=== PATIENT | male | born 1985 | race African-American/Black ===

== ENCOUNTER → 2020-01-14 08:28 | Outpatient (BNVA) | payer OTHER, SELFPAY | PROVIDERS: PCP Nurse Practitioner Family; Referring Provider Nurse Practitioner Family; Visit Provider Psychiatry & Neurology Neurology | DX: Z76.89 Persons encountering health services in other specified circumstances (principal) ==

== ENCOUNTER 2020-06-17 08:22 | Outpatient (REF) | payer OTHER, SELFPAY ==
[2020-06-17 12:24] LABS: TSH reflex Free T4 2.03 uIU/mL (0.32-4.0)
[2020-06-17 12:30] LABS: Alanine Aminotransferase 57 U/L (0-40); Albumin Level 4.5 g/dL (3.5-5.0); Alkaline Phosphatase 78 U/L (39-117); Anion Gap 17 (12-20); Aspartate Amino Transferase 32 U/L (5-37); Bilirubin Total 0.4 mg/dL (0.0-1.0); Blood Urea Nitrogen 12 mg/dL (9-16); Calcium 9.5 mg/dL (8.4-10.2); Carbon Dioxide 24 mmol/L (22-29); Chloride 101 mmol/L (96-108); Cholesterol 208 mg/dL; Estimated Glomerular Filt Rate > 60; Glucose Fasting 200 mg/dL (60-99); HDL Cholesterol 31 mg/dL; LDL Cholesterol Calculated 98 mg/dl; Potassium 4.8 mmol/L (3.3-5.1); Sodium 137 mmol/L (135-145); Total Protein 7.3 g/dL (6.5-8.0); Triglycerides 398 mg/dL
[2020-06-17 12:32] LABS: Creatinine Urine 67.65 mg/dL; Microalbum/Creatinine Ratio Ur 10.3 ug/mg cr
[2020-06-17 12:36] LABS: Estimated Average Glucose 200 mg/dL; Hemoglobin A1c % 8.6 %
== END 2020-06-17 08:23 | disposition home or self-care (01) ==
LOC: HO.HMGCLDS 08:22
PROVIDERS: PCP Nurse Practitioner Family; Visit Provider Nurse Practitioner Family
DX: E11.9 Type 2 diabetes mellitus without complications (principal)
CPT/HCPCS: 36415; 80053; 80061; 82043; 83036; 84443

== ENCOUNTER 2023-02-11 07:49 | Outpatient (REF) | payer OTHER, SELFPAY ==
[2023-02-11 11:14] LABS: MANUAL DIFF FLAG NO
[2023-02-11 11:19] LABS: Basophils Absolute Auto 0.1 X10*3/uL (0.0-0.2); Basophils Percent Auto 0.7 % (0-2); Eosinophils Absolute Auto 0.4 X10*3/uL (0.0-0.4); Eosinophils Percent Auto 3.5 % (0-4); Hematocrit 46.8 % (42.0-52.0); Imm Gran Abs Auto 0.06 X10*3/uL (0.00-0.03); Imm Gran Pct Auto 0.5 % (0.0-0.4); Lymphocytes Absolute Auto 4.4 X10*3/uL (1.2-4.9); Lymphocytes Percent Auto 38.8 % (20-40); Mean Corpuscular HGB Conc 34.2 g/dl (31.0-36.0); Mean Corpuscular Hemoglobin 30.4 pg (27.0-33.0); Mean Platelet Volume 9.8 fL (9.4-12.4); Monocytes Absolute Auto 0.8 X10*3/uL (0.1-1.2); Monocytes Percent Auto 7.3 % (2-11); Neutrophils Absolute Auto 5.6 x10*3/uL (2.0-8.3); Neutrophils Percent Auto 49.2 % (45-73); Platelet Count 324 X10*3/uL (160-400); Red Blood Count 5.26 X10*6/uL (4.60-5.80); Red Cell Distribution Width 11.8 % (11.0-16.0); White Blood Count 11.4 X10*3/uL (4.8-10.8)
[2023-02-11 11:22] LABS: Appearance Urine Cloudy; Color Urine Yellow; Glucose Urine UA 500 mg/dL (Negative); Leukocyte Esterase Urine Small (1+) (Negative); Nitrite Urine Negative (Negative); PH 5.5 (5.0-9.0); Specific Gravity - Urine 1.025 (1.005-1.025); UMIC TRIGGER UACC YES; Urine Blood Negative (Negative); Urine Ketones Negative (Negative); Urine Protein Negative (Neg-Trace)
[2023-02-11 11:25] LABS: Bacteria Urine None Seen (None Seen); Hyaline Casts Urine 0-2 /LPF (0-2); RBC Urine 0-2 /HPF (0-2); Squamous Epithelial Cell Urine 0-2 /HPF (0-2); UACC Culture Trigger YES
[2023-02-11 11:37] LABS: Alanine Aminotransferase 66 U/L (0-40); Albumin Level 4.4 g/dL (3.5-5.0); Alkaline Phosphatase 79 U/L (39-117); Anion Gap 12 (12-20); Aspartate Amino Transferase 26 U/L (5-37); Bilirubin Total 0.3 mg/dL (0.0-1.0); Blood Urea Nitrogen 10 mg/dL (9-16); Calcium 9.6 mg/dL (8.4-10.2); Carbon Dioxide 26 mmol/L (22-29); Chloride 101 mmol/L (96-108); Cholesterol 183 mg/dL (<200); Estimated Glomerular Filt Rate > 60; Glucose Fasting 277 mg/dL (60-99); HDL Cholesterol 32 mg/dL (>40); LDL Cholesterol Calculated 100 mg/dL (<100); Potassium 4.3 mmol/L (3.3-5.1); Sodium 135 mmol/L (135-145); Total Protein 7.6 g/dL (6.5-8.0); Triglycerides 255 mg/dL (<150)
[2023-02-11 11:38] LABS: Microalbum/Creatinine Ratio Ur 9.6 ug/mg cr (<30)
[2023-02-11 11:56] LABS: TSH reflex Free T4 1.54 uIU/mL (0.32-4.0)
== END 2023-02-11 07:50 | disposition home or self-care (01) ==
LOC: HO.HMGCLDS 07:49
PROVIDERS: PCP Nurse Practitioner Family; Visit Provider Nurse Practitioner Family
DX: E11.9 Type 2 diabetes mellitus without complications (principal); R82.90 Unspecified abnormal findings in urine
CPT/HCPCS: 36415; 80053; 80061; 81001; 82043; 82570; 84443; 85025; 87086

== ENCOUNTER 2023-02-14 08:10 | Outpatient (AMB) | payer OTHER, SELFPAY ==
--- NOTE | 2023-02-14 08:14 | MHC.PC.OV ---
Vital Signs 02/14/23 08:19 Height 5 ft 11.5 in Weight 270 lb BMI 37.1 BP 112/70 Blood Pressure Location Rt brachial Position Sitting Pulse 91 Pulse Source Pulse Oximeter Pulse Oximetry (%) 97 Oxygen Delivery Method Room Air Intake Visit Reasons: 3m diabetes follow up Allergies penicillin G Allergy (Unknown, Verified 02/14/23 08:32) unknown Penicillins [PENICILLINS] Allergy (Unknown, Verified 02/14/23 08:32) UNKNOWN Medication List - Last Reconciled 02/14/23 by HERON Banks Alcohol Prep Pads (alcohol swabs) 1 pad topical .TID NS blood sugar diagnostic As directed blood-glucose meter As directed lancets As directed lancets (OneTouch Delica Plus Lancet) TID testing lisinopril 20 mg PO DAILY metformin ER 500 mg PO BID 90 days OneTouch Ultra Test (blood sugar diagnostic) TID testing NS OneTouch Ultra2 Meter (blood-glucose meter) TID testing NS sertraline 100 mg PO DAILY Tobacco use date assessed: 08/25/22 Dental Screening Dental Screen Date: 02/14/23 Did you have a dental visit in the last 12 months?: No Did you have a dental problem in the last 6 months where you did not have access to dental care?: No Was dental information given to patient?: Patient has dentist HPI 3m diabetes follow up HPI Details Pt is a diabetic, on an GELY. A1C in office today is 10.2. Microalbumin is up to date. Denies polyuria, polydipsia, and neuropathy. Pt denies any signs and symptoms of hypoglycemia and does know how to correct it. He would not like to start insulin at this time. Pt has tried jardiance in the past which he tolerated well. Will restart this. Pt is uncircumcised, educated on the importance of keeping the area clean to avoid genital yeast infection. Will also start ozempic 0.25mg. Eye exam is up to date according to pt. Pt reports that statins caused alopecia. Will restart zetia. Refuses vaccines today. Hx of elevated liver enzymes. Will order US and hepatitis screen. [facility] Surgical History No pertinent past surgical history Family History Father HTN (hypertension) Mother No problems noted. Maternal Grandmother Stroke Paternal Grandfather CVD (cardiovascular disease) Brother No problems noted. Brother No problems noted. Sister No problems noted. Sister No problems noted. Sister No problems noted. Social History Housing: House Patient Tobacco Use Status: Never used Tobacco e-Cigarette/Vaping Use: Never Used service: No Current occupational status: employed Cognitive needs: No Hearing needs: No Vision needs: Yes Review of Systems Const Reports as per HPI Physical exam (Primary Care) Vital Signs: Last Vital Signs Pulse 91 02/14/23 08:19 BP 112/70 02/14/23 08:19 Pulse Ox 97 02/14/23 08:19 Oxygen Delivery Method Room Air 02/14/23 08:19 BMI result Body Mass Index 37.1 Tobacco/Smoking Status: Tobacco use Status Tobacco use date assessed 08/25/22 02/14/23 08:16 Patient Tobacco Use Status Never used Tobacco 02/14/23 08:16 e-Cigarette/Vaping Use Never Used 02/14/23 08:16 Const General: cooperative Nutritional Appearance: obese Orientation/consciousness: patient oriented x3 Resp Effort & Inspection: normal respiratory effort Auscultation: clear to auscultation bilaterally Cardio Rate: regular rate Rhythm: regular rhythm Heart sounds: S1 normal heart sound present and S2 normal heart sound present Neuro General: patient oriented x3 Extrem Other: bilat feet: + sensation with use of monofilament, feet intact Psych Appearance: grossly normal Mental Status: mental status grossly normal Speech and movement: Normal speech and movement present Affect: normal affect Attitude: cooperative Thought process: Normal thought process present Thought content: Normal thought content present Insight: Good insight present (Psych) Judgement: Good judgement present (Psych) Results AMB Hemoglobin A1c AMB Hemoglobin A1c 10.2 % Last Edit by MAURO Elaine on 02/14/23 08:44 Assessment and Plan Assessment & Plan (1) Elevated liver enzymes: Code(s): R74.8 - Abnormal levels of other serum enzymes Plan: Hepatitis screen and US ordered (2) Leukocytosis: Code(s): D72.829 - Elevated white blood cell count, unspecified Plan: CBC ordered (3) Diabetes: Code(s): E11.9 - Type 2 diabetes mellitus without complications Plan: Labs ordered Plan The patient agreed to the use of a medical nurse for this encounter. Scribed for Gabriele Aquino BODY CORPORATE MANAGER- by Shyla Gunn medical nurse, on 02/14/2023 at 08:35 EST. Orders: Orders US abdomen complete Today R74.8 - Abnormal levels of other serum enzymes AMB Hemoglobin A1c Today Z13.9 - Encounter for screening, unspecified Complete Blood Count Auto Diff Today D72.829 - Elevated white blood cell count, unspecified Hepatitis A,B,C Profile Today E11.9 - Type 2 diabetes mellitus without complications, R74.8 - Abnormal levels of other serum enzymes Medications: New semaglutide (Ozempic) for 4 weeks 0.25 mg (0.368 mL) subcut QWEEK 30 days 1.84 mL 2RF empagliflozin (Jardiance) 10 mg PO DAILY 90 days 90 tabs 1RF Changed From ezetimibe (Zetia) 10 mg PO DAILY 30 days 30 tabs 3RF To ezetimibe (Zetia) 10 mg PO DAILY 90 days 90 tabs 2RF Coding Level of Care Code Est Pt Level 3 (88160) Diagnoses Elevated liver enzymes R74.8 Leukocytosis D72.829 Diabetes E11.9
[2023-02-14 08:19] VITALS: BP 112/70; PULSE 91; O2SAT 97; BMI 37.1
== END 2023-02-14 09:05 | disposition home or self-care (01) ==
PROVIDERS: PCP Nurse Practitioner Family; Visit Provider Nurse Practitioner Family
DX: R74.8 Abnormal levels of other serum enzymes (principal); D72.829 Elevated white blood cell count, unspecified; E11.9 Type 2 diabetes mellitus without complications
CPT/HCPCS: 83036; 99213

== ENCOUNTER 2023-02-14 09:08 | Outpatient (REF) | payer OTHER, SELFPAY ==
[2023-02-14 11:29] LABS: Basophils Absolute Auto 0.1 X10*3/uL (0.0-0.2); Basophils Percent Auto 0.7 % (0-2); Eosinophils Absolute Auto 0.5 X10*3/uL (0.0-0.4); Eosinophils Percent Auto 3.7 % (0-4); Hematocrit 49.5 % (42.0-52.0); Hemoglobin 16.9 g/dl (14.0-18.0); Imm Gran Abs Auto 0.09 X10*3/uL (0.00-0.03); Imm Gran Pct Auto 0.6 % (0.0-0.4); Lymphocytes Absolute Auto 5.3 X10*3/uL (1.2-4.9); Lymphocytes Percent Auto 37.8 % (20-40); MANUAL DIFF FLAG SCAN; Mean Corpuscular HGB Conc 34.1 g/dl (31.0-36.0); Mean Corpuscular Hemoglobin 30.3 pg (27.0-33.0); Mean Corpuscular Volume 88.9 fL (80.0-98.0); Mean Platelet Volume 9.7 fL (9.4-12.4); Neutrophils Absolute Auto 7.1 x10*3/uL (2.0-8.3); Neutrophils Percent Auto 50.2 % (45-73); Platelet Count 336 X10*3/uL (160-400); Red Blood Count 5.57 X10*6/uL (4.60-5.80); Red Cell Distribution Width 11.9 % (11.0-16.0); SCAN SMEAR FLAG 1; White Blood Count 14.1 X10*3/uL (4.8-10.8)
[2023-02-14 12:00] LABS: SLIDE REVIEW VERIFIED
[2023-02-14 12:25] LABS: HBS Num1 0.17 mIU/mL (0-7.99); HBc Num1 0.11 S/CO (0.00-0.79); HBsAGNum1 0.45 S/CO (0.00-0.99); Hepatitis A Antibody IgM 0.11 Index (0-0.79); Hepatitis B Core Antibody Nonreactive (Nonreactive); Hepatitis B Surface Antigen Negative (Negative); ~HepC Num1 0.07 S/CO (0.00-0.79); ~Hepatitis A Antibody IgM Nonreactive (Nonreactive); ~Hepatitis B Surface Antibody NONREACTIVE (Nonreactive); ~Hepatitis C Antibody Nonreactive (Nonreactive)
== END 2023-02-14 09:09 | disposition home or self-care (01) ==
LOC: HO.HMGCLDS 09:08
PROVIDERS: PCP Nurse Practitioner Family; Visit Provider Nurse Practitioner Family
DX: D72.829 Elevated white blood cell count, unspecified (principal); E11.9 Type 2 diabetes mellitus without complications; R74.8 Abnormal levels of other serum enzymes
CPT/HCPCS: 36415; 85025; 86704; 86706; 86709; 86803; 87340

== ENCOUNTER 2023-02-15 13:40 | Outpatient (REF) | payer OTHER, SELFPAY ==
[2023-02-15 16:21] LABS: Appearance Urine Clear; Color Urine Yellow; Glucose Urine UA >=1000 mg/dL (Negative); Leukocyte Esterase Urine Negative (Negative); Nitrite Urine Negative (Negative); Specific Gravity - Urine >= 1.030 (1.005-1.025); UMIC TRIGGER UACC YES; Urine Blood Negative (Negative); Urine Ketones Negative (Negative); Urine Protein Negative (Neg-Trace)
[2023-02-15 16:24] LABS: Bacteria Urine None Seen (None Seen); Hyaline Casts Urine 0-2 /LPF (0-2); RBC Urine 0-2 /HPF (0-2); Squamous Epithelial Cell Urine 0-2 /HPF (0-2); WBC Urine 0-5 /HPF (0-5)
== END 2023-02-15 13:41 | disposition home or self-care (01) ==
LOC: HO.HMGCX 13:40
PROVIDERS: PCP Nurse Practitioner Family; Visit Provider Nurse Practitioner Family
DX: D72.829 Elevated white blood cell count, unspecified (principal); R82.90 Unspecified abnormal findings in urine
CPT/HCPCS: 71046; 81001; 87086

== ENCOUNTER 2023-02-28 09:03 | Outpatient (REF) | payer OTHER, SELFPAY ==
--- NOTE | ~2023-02-28 | US_ITS ---
EXAMINATION: US ABDOMEN COMPLETE CLINICAL INFORMATION: Abnormal levels of other serum enzymes. COMPARISON: Ultrasound abdomen 10/31/2019. TECHNIQUE: Real-time imaging of the abdominal viscera. Limited visualization due to bowel gas and body habitus. FINDINGS: PANCREAS: Limited visualization of pancreatic tail and head. Imaged portion of pancreatic body is unremarkable. ABDOMINAL AORTA: Nonaneurysmal. INFERIOR VENA CAVA: Visualized portions are normal. LIVER: Increased hepatic parenchymal heterogeneity and echogenicity could be associated with hepatocellular disease/hepatic steatosis and severely limits visualization. Correlation with liver function tests and clinical exam recommended to determine further management. Hypoechoic areas within the liver adjacent to the gallbladder are characteristic of areas of focal sparing. GALLBLADDER: No gallstones. Borderline gallbladder wall thickening of 0.34 cm. COMMON BILE DUCT: Normal in caliber measuring 0.2 cm in diameter. RIGHT KIDNEY: No hydronephrosis. No renal calculi. Limited visualization. The kidney measures 13.8 cm in maximum dimension. LEFT KIDNEY: No hydronephrosis. No renal calculi. Limited visualization. The kidney measures 11.6 cm in maximum dimension. SPLEEN: Borderline enlarged spleen. The spleen measures 12.4 cm in maximum dimension. FREE FLUID: None. US/US abdomen complete IMPRESSION: 1. Increased hepatic parenchymal heterogeneity and echogenicity could be associated with hepatocellular disease/hepatic steatosis and severely limits visualization. Hypoechoic areas within the liver adjacent to the gallbladder are characteristic of areas of focal sparing. Correlation with liver function tests and clinical exam recommended to determine further management. 2. Borderline splenomegaly.
[2023-02-28 11:10] LABS: MANUAL DIFF FLAG NO
[2023-02-28 11:13] LABS: Appearance Urine Clear; Color Urine Yellow; Glucose Urine UA >=1000 mg/dL (Negative); Leukocyte Esterase Urine Trace (Negative); Nitrite Urine Negative (Negative); PH 5.5 (5.0-9.0); Specific Gravity - Urine 1.025 (1.005-1.025); UMIC TRIGGER UACC YES; Urine Blood Negative (Negative); Urine Ketones 15 mg/dL (Negative); Urine Protein Negative (Neg-Trace)
[2023-02-28 11:17] LABS: Bacteria Urine None Seen (None Seen); Basophils Absolute Auto 0.1 X10*3/uL (0.0-0.2); Basophils Percent Auto 0.5 % (0-2); Eosinophils Absolute Auto 0.3 X10*3/uL (0.0-0.4); Eosinophils Percent Auto 3.2 % (0-4); Hematocrit 48.5 % (42.0-52.0); Hemoglobin 16.5 g/dl (14.0-18.0); Hyaline Casts Urine 0-2 /LPF (0-2); Imm Gran Abs Auto 0.08 X10*3/uL (0.00-0.03); Imm Gran Pct Auto 0.8 % (0.0-0.4); Lymphocytes Percent Auto 29.3 % (20-40); Mean Corpuscular Hemoglobin 29.7 pg (27.0-33.0); Mean Corpuscular Volume 87.2 fL (80.0-98.0); Mean Platelet Volume 9.4 fL (9.4-12.4); Monocytes Absolute Auto 0.9 X10*3/uL (0.1-1.2); Monocytes Percent Auto 8.9 % (2-11); Neutrophils Absolute Auto 5.8 x10*3/uL (2.0-8.3); Neutrophils Percent Auto 57.3 % (45-73); Platelet Count 294 X10*3/uL (160-400); RBC Urine 0-2 /HPF (0-2); Red Blood Count 5.56 X10*6/uL (4.60-5.80); Red Cell Distribution Width 12.6 % (11.0-16.0); Squamous Epithelial Cell Urine 0-2 /HPF (0-2); WBC Urine 0-5 /HPF (0-5); White Blood Count 10.2 X10*3/uL (4.8-10.8)
[2023-02-28 12:11] LABS: Alanine Aminotransferase 74 U/L (0-40); Albumin Level 4.4 g/dL (3.5-5.0); Alkaline Phosphatase 53 U/L (39-117); Anion Gap 13 (12-20); Aspartate Amino Transferase 33 U/L (5-37); Bilirubin Total 0.4 mg/dL (0.0-1.0); Blood Urea Nitrogen 10 mg/dL (9-16); Calcium 9.4 mg/dL (8.4-10.2); Carbon Dioxide 25 mmol/L (22-29); Chloride 103 mmol/L (96-108); Estimated Glomerular Filt Rate > 60; Glucose Random 123 mg/dL (60-115); Potassium 4.3 mmol/L (3.3-5.1); Sodium 137 mmol/L (135-145); Total Protein 7.5 g/dL (6.5-8.0)
== END 2023-02-28 09:04 | disposition home or self-care (01) ==
LOC: HO.HMGCX 09:03
PROVIDERS: PCP Nurse Practitioner Family; Visit Provider Nurse Practitioner Family
DX: D72.829 Elevated white blood cell count, unspecified (principal); R74.8 Abnormal levels of other serum enzymes
CPT/HCPCS: 36415; 76700; 80053; 81001; 85025

== ENCOUNTER 2023-05-17 09:43 | Outpatient (AMB) | payer OTHER, SELFPAY ==
[2023-05-17 09:45] VITALS: BP 120/74; PULSE 90; O2SAT 97; BMI 34.4
--- NOTE | 2023-05-17 09:45 | MHC.PC.OV ---
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 Accompanied by: Self / Same As Patient Allergies penicillin G Allergy (Unknown, Verified 05/17/23 12:17) unknown Penicillins [PENICILLINS] Allergy (Unknown, Verified 05/17/23 12:17) UNKNOWN Medication List - Last Reconciled 05/17/23 by CRISPIN Banks Alcohol Prep Pads (alcohol swabs) 1 pad topical .TID NS blood sugar diagnostic As directed blood-glucose meter As directed empagliflozin (Jardiance) 10 mg PO DAILY 90 days ezetimibe (Zetia) 10 mg PO DAILY 90 days lancets As directed lancets (OneTouch Delica Plus Lancet) TID testing lisinopril 20 mg PO DAILY metformin ER 500 mg PO BID 90 days OneTouch Ultra Test (blood sugar diagnostic) TID testing NS OneTouch Ultra2 Meter (blood-glucose meter) TID testing NS semaglutide (Ozempic) 0.25 mg (0.368 mL) subcut QWEEK 30 days sertraline 100 mg PO DAILY Tobacco use date assessed: 05/17/23 Dental Screening Dental Screen Date: 05/17/23 Did you have a dental visit in the last 12 months?: Yes Did you have a dental problem in the last 6 months where you did not have access to dental care?: No Was dental information given to patient?: Patient has dentist HPI 3m diabetes follow up HPI Details Pt is a diabetic, on an GELY. A1C in office today is 6.1. Microalbumin is up to date. Denies polyuria, polydipsia, and neuropathy. Pt denies any signs and symptoms of hypoglycemia and does know how to correct it. Pt reports that his intermittent neuropathy has ceased. Eye exam is scheduled. He describes feeling better, overall [facility] Medical History History of splenomegaly Surgical History No pertinent past surgical history Family History Father HTN (hypertension) Mother No problems noted. Maternal Grandmother Stroke Paternal Grandfather CVD (cardiovascular disease) Brother No problems noted. Brother No problems noted. Sister No problems noted. Sister No problems noted. Sister No problems noted. Social History Housing: House Patient Tobacco Use Status: Never used Tobacco e-Cigarette/Vaping Use: Never Used service: No Current occupational status: employed Cognitive needs: No Hearing needs: No Vision needs: Yes Questionnaire PHQ-9 Over the last 2 weeks, how often have you been bothered by any of the following problems? 1. Little interest or pleasure in doing things: not at all 2. Feeling down, depressed, or hopeless: not at all 3. Trouble falling or staying asleep, or sleeping too much: not at all 4. Feeling tired or having little energy: not at all 5. Poor appetite or overeating: not at all 6. Feeling bad about yourself - or that you are a failure or have let yourself or your family down: not at all 7. Trouble concentrating on things, such as reading the newspaper or watching television: not at all 8. Moving or speaking so slowly that other people could have noticed. Or the opposite - being so fidgety or restless that you have been moving around a lot more than usual: not at all 9. Thoughts that you would be better off or of hurting yourself in some way: not at all Total score: 0 Depression Screening Interpretation: Negative Depression Screening Done: Yes 18603 - PHQ-9 Billing: Yes Source: Developed by Drs. Bharat Ragsdale, Dayanara Garcia, Jeff Garcia and colleagues, with an educational selena from [employer]. Thrive Questionnaire Date Thrive assessed: 05/17/23 I am a: Patient What is your living situation today?: I have a steady place to live Within the past 12 months, did the food you bought not last and you didn't have the money to get more?: Never true Within the past 12 months, did you worry whether your food would run out before you got money to buy more?: Never true Do you have trouble paying for medicines?: No Do you have trouble getting transportation to medical appointments?: No Do you have trouble paying your heating and electricity bill?: No Do you have trouble taking care of your child, family member or friend?: No Do you have trouble with day-to-day activities such as bathing, preparing meals, shopping, managing finances, etc.?: No Are you currently unemployed and looking for a job?: No Are you interested in more education?: No Please select the resources that you would like help with: None Currently or been in a relationship where the following occur: no concerns reported THRIVE Score: 0 AUDIT C Alcohol Use Questionnaire (AUDIT-C) 1. How often do you have a drink containing alcohol?: Monthly or less 2. How many drinks containing alcohol do you have on a typical day when you are drinking?: 1 or 2 3. How often do you have six or more drinks on one occasion?: Never Total Score: 1 Score Reviewed/Action Taken: Yes ABNER-7 AMB Questionnaire ABNER-7 Date ABNER - 7 assessed: 05/17/23 Feeling nervous, anxious, or on edge: 0 = Not at all Not being able to stop or control worryin = Not at all Worrying too much about different things: 0 = Not at all Trouble relaxin = Not at all Being so restless that it is hard to sit still: 0 = Not at all Becoming easily annoyed or irritable: 0 = Not at all Feeling afraid as if something awful might happen: 0 = Not at all Total ABNER-7 score (0-4 normal; 5-9 mild; 10-14 moderate; 15-21 severe): 0 Source: Developed by Drs. Bharat Ragsdale, Dayanara Garcia, Jeff Garcia and colleagues, with an educational selena from [employer]. ABNER-7 Assessment Billing ABNER-7 Assessment Tool: ABNER-7 Assessment 38084 Review of Systems Const Reports as per HPI Physical exam (Primary Care) Vital Signs: Last Vital Signs Pulse 90 05/17/23 09:45 BP 120/74 05/17/23 09:45 Pulse Ox 97 05/17/23 09:45 Oxygen Delivery Method Room Air 05/17/23 09:45 BMI result Body Mass Index 34.4 Tobacco/Smoking Status: Tobacco use Status Tobacco use date assessed 05/17/23 05/17/23 09:48 Patient Tobacco Use Status Never used Tobacco 05/17/23 09:48 e-Cigarette/Vaping Use Never Used 05/17/23 09:48 PHQ-9: PHQ-9 Score PHQ-9: Total score 0 05/17/23 10:06 Depression Screening Interpretation: Negative Thrive Assessment: Date of Thrive Assessment Date Thrive assessed 05/17/23 05/17/23 09:48 Currently or been in a relationship where the following occur: no concerns reported Const General: cooperative Nutritional Appearance: obese Orientation/consciousness: patient oriented x3 Resp Effort & Inspection: normal respiratory effort Auscultation: clear to auscultation bilaterally Cardio Rate: regular rate Rhythm: regular rhythm Heart sounds: S1 normal heart sound present and S2 normal heart sound present Neuro General: patient oriented x3 Extrem Other: bilat feet: + sensation with use of monofilament, feet intact Right lower extremity: no edema Left lower extremity: no edema Psych Appearance: grossly normal Mental Status: mental status grossly normal Speech and movement: Normal speech and movement present Affect: normal affect Attitude: cooperative Thought process: Normal thought process present Thought content: Normal thought content present Insight: Good insight present (Psych) Judgement: Good judgement present (Psych) Results AMB Hemoglobin A1c AMB Hemoglobin A1c 6.1 % Last Edit by Eduardo Johnson CMA on 05/17/23 10:12 Results Reviewed Results Reviewed: Laboratory Last Values Hgb A1c (Clinic) 6.1 % (4.0-6.0) H 05/17/23 10:12 Assessment and Plan Assessment & Plan (1) Diabetes: Code(s): E11.9 - Type 2 diabetes mellitus without complications Plan: Labs ordered Plan The patient agreed to the use of a biomedical equipment specialist for this encounter. Scribed for CRISPIN Ocasio by Shyla Gunn biomedical equipment specialist, on 05/17/2023 at 10:00 EST. Orders: Orders TSH reflex Free T4 Today E11.9 - Type 2 diabetes mellitus without complications Lipid Panel Today E11.9 - Type 2 diabetes mellitus without complications AMB Hemoglobin A1c Today Z13.9 - Encounter for screening, unspecified Complete Blood Count Auto Diff Today E11.9 - Type 2 diabetes mellitus without complications Comprehensive [place]. Panel Fast Today E11.9 - Type 2 diabetes mellitus without complications UA CC w/rflx Micro + Cult Today E11.9 - Type 2 diabetes mellitus without complications Coding Level of Care Code Est Pt Level 3 (94321) Diagnoses Diabetes E11.9 Additional Codes ABNER-7 Assessment Billing - ABNER-7 Assessment Tool: ABNER-7 Assessment 17900 ([id number])
== END 2023-05-17 10:54 | disposition home or self-care (01) ==
PROVIDERS: PCP Nurse Practitioner Family; Visit Provider Nurse Practitioner Family
DX: Z13.9 Encounter for screening, unspecified (principal); E11.9 Type 2 diabetes mellitus without complications
CPT/HCPCS: 83036; 99213

== ENCOUNTER 2023-08-28 08:11 | Outpatient (REF) | payer OTHER, SELFPAY ==
[2023-08-28 10:16] LABS: Appearance Urine Clear; Color Urine Yellow; Glucose Urine UA >=1000 mg/dL (Negative); Leukocyte Esterase Urine Trace (Negative); MANUAL DIFF FLAG NO; Nitrite Urine Negative (Negative); PH 5.5 (5.0-9.0); Specific Gravity - Urine 1.025 (1.005-1.025); UMIC TRIGGER UACC YES; Urine Blood Negative (Negative); Urine Ketones Negative (Negative); Urine Protein Negative (Neg-Trace)
[2023-08-28 10:19] LABS: Bacteria Urine None Seen (None Seen); Hyaline Casts Urine 0-2 /LPF (0-2); RBC Urine 0-2 /HPF (0-2); Squamous Epithelial Cell Urine 0-2 /HPF (0-2); WBC Urine 0-5 /HPF (0-5)
[2023-08-28 10:26] LABS: Basophils Absolute Auto 0.1 X10*3/uL (0.0-0.2); Basophils Percent Auto 0.8 % (0-2); Eosinophils Absolute Auto 1.1 X10*3/uL (0.0-0.4); Imm Gran Abs Auto 0.04 X10*3/uL (0.00-0.03); Imm Gran Pct Auto 0.3 % (0.0-0.4); Lymphocytes Absolute Auto 4.4 X10*3/uL (1.2-4.9); Lymphocytes Percent Auto 35.9 % (20-40); Mean Corpuscular HGB Conc 33.3 g/dl (31.0-36.0); Mean Corpuscular Hemoglobin 30.5 pg (27.0-33.0); Mean Corpuscular Volume 91.4 fL (80.0-98.0); Mean Platelet Volume 9.7 fL (9.4-12.4); Monocytes Absolute Auto 0.9 X10*3/uL (0.1-1.2); Monocytes Percent Auto 7.6 % (2-11); Neutrophils Absolute Auto 5.6 x10*3/uL (2.0-8.3); Neutrophils Percent Auto 46.4 % (45-73); Platelet Count 299 X10*3/uL (160-400); Red Blood Count 5.25 X10*6/uL (4.60-5.80); Red Cell Distribution Width 12.8 % (11.0-16.0); White Blood Count 12.1 X10*3/uL (4.8-10.8)
[2023-08-28 10:47] LABS: Alanine Aminotransferase 54 U/L (0-40); Albumin Level 4.3 g/dL (3.5-5.0); Alkaline Phosphatase 72 U/L (39-117); Anion Gap 12 (12-20); Aspartate Amino Transferase 23 U/L (5-37); Bilirubin Total 0.3 mg/dL (0.0-1.0); Blood Urea Nitrogen 10 mg/dL (9-16); Calcium 9.2 mg/dL (8.4-10.2); Carbon Dioxide 26 mmol/L (22-29); Chloride 105 mmol/L (96-108); Cholesterol 117 mg/dL (<200); Estimated Glomerular Filt Rate > 60; Glucose Fasting 124 mg/dL (60-99); HDL Cholesterol 37 mg/dL (>40); LDL Cholesterol Calculated 66 mg/dL (<100); Potassium 4.7 mmol/L (3.3-5.1); Sodium 138 mmol/L (135-145); Total Protein 7.2 g/dL (6.5-8.0); Triglycerides 73 mg/dL (<150)
[2023-08-28 11:04] LABS: TSH reflex Free T4 1.72 uIU/mL (0.32-4.0)
== END 2023-08-28 08:12 | disposition home or self-care (01) ==
LOC: HO.HMGCLDS 08:11
PROVIDERS: PCP Nurse Practitioner Family; Visit Provider Nurse Practitioner Family
DX: E11.9 Type 2 diabetes mellitus without complications (principal)
CPT/HCPCS: 36415; 80053; 80061; 81001; 84443; 85025

== ENCOUNTER 2023-08-28 13:23 | Outpatient (AMB) | payer OTHER, SELFPAY ==
[2023-08-28 13:37] VITALS: BP 134/70; PULSE 96; O2SAT 95; BMI 35.4
--- NOTE | 2023-08-28 13:37 | A.OFFPC_ITS ---
Vital Signs 08/28/23 13:37 Height 5 ft 11.5 in Weight 257 lb 6 oz BMI 35.4 BP 134/70 Blood Pressure Location Lt brachial Position Sitting Pulse 96 Pulse Source Pulse Oximeter Pulse Oximetry (%) 95 Oxygen Delivery Method Room Air Intake Visit Reasons: PE Allergies penicillin G Allergy (Unknown, Verified 08/28/23 13:38) unknown Penicillins [PENICILLINS] Allergy (Unknown, Verified 08/28/23 13:38) UNKNOWN Tobacco use date assessed: 05/17/23 Dental Screening Dental Screen Date: 05/17/23 HPI PE HPI Details Pt is here for a PE. Labs were already performed. Leukocytosis noted on labs, will repeat CBC. Pt is a diabetic, on an GELY. A1C in office today is 6.1. Microalbumin is up to date. Denies polyuria, polydipsia, reports intermittent neuropathy. Pt denies any signs and symptoms of hypoglycemia and does know how to correct it. Pt was working on his diet and losing weight but his diet has been poorer lately. refuses pneumonia vaccination today. [facility] Medical History History of splenomegaly Surgical History No pertinent past surgical history Family History Father HTN (hypertension) Mother No problems noted. Maternal Grandmother Stroke Paternal Grandfather CVD (cardiovascular disease) Brother No problems noted. Brother No problems noted. Sister No problems noted. Sister No problems noted. Sister No problems noted. Social History Housing: House Patient Tobacco Use Status: Never used Tobacco e-Cigarette/Vaping Use: Never Used service: No Current occupational status: employed Cognitive needs: No Hearing needs: No Vision needs: Yes Questionnaire Thrive Questionnaire Date Thrive assessed: 05/17/23 ABNER-7 AMB Questionnaire ABNER-7 Date ABNER - 7 assessed: 05/17/23 Source: Developed by Drs. Bharat Ragsdale, Dayanara Garcia, Jeff Garcia and colleagues, with an educational selena from [employer]. Review of Systems Const Denies chills and Denies fever(s) Eyes Denies blurry vision ENT Denies vertigo, Denies dizziness and Denies sore throat Card Denies chest pain at rest, Denies chest pain with activity, Denies diaphoresis, Denies dyspnea and Denies dyspnea on exertion Resp Denies cough, Denies dyspnea, Denies dyspnea on exertion and Denies wheezing GI Denies abdominal pain, Denies melena, Denies hematochezia, Denies constipation, Denies diarrhea and Denies loose stools Denies hematuria Musc Denies numbness and Denies tingling Skin/Breast Denies lesions Neuro Denies vertigo, Denies dizziness, Denies numbness and Denies tingling Psych Denies anxiety, Denies depression, Denies homicidal ideation, Denies suicidal ideation and Denies other (substance abuse) Aller/Immun Denies wheezing Physical exam (Primary Care) Vital Signs: Last Vital Signs Pulse 96 08/28/23 13:37 BP 134/70 08/28/23 13:37 Pulse Ox 95 08/28/23 13:37 Oxygen Delivery Method Room Air 08/28/23 13:37 BMI result Body Mass Index 35.4 Tobacco/Smoking Status: Tobacco use Status Tobacco use date assessed 05/17/23 08/28/23 13:40 Patient Tobacco Use Status Never used Tobacco 08/28/23 13:40 e-Cigarette/Vaping Use Never Used 08/28/23 13:40 Thrive Assessment: Date of Thrive Assessment Date Thrive assessed 05/17/23 08/28/23 13:40 Const General: cooperative Nutritional Appearance: well nourished Orientation/consciousness: patient oriented x3 HENMT Head: Yes normal to inspection, Yes normocephalic and Yes atraumatic Ears: TM's normal bilaterally Eyes General: appearance normal, both eyes and all related structures Alignment and Position: alignment normal and position normal Neck Neck: Yes normal visual inspection and Yes no lymphadenopathy Thyroid: Thyroid normal Resp Effort & Inspection: normal respiratory effort Auscultation: clear to auscultation bilaterally Cardio Rate: regular rate Rhythm: regular rhythm Heart sounds: S1 normal heart sound present, S2 normal heart sound present and no murmurs GI Palpation (GI): Soft to palpation and nontender Auscultation: normal bowel sounds Male General Exam: Yes normal external exam Penis: normal penis Scrotum: scrotum normal, testes descended bilaterally and no inguinal hernias Testes: no testicular mass Skin Rashes: no rashes Neuro General: patient oriented x3, moves all extremities, no focal motor deficits and deep tendon reflexes 2+ bilaterally Romberg Test: Negative Extrem Other: bilat feet: + sensation with use of monofilament Psych Appearance: grossly normal Mental Status: mental status grossly normal Speech and movement: Normal speech and movement present Affect: normal affect Attitude: cooperative Thought process: Normal thought process present Thought content: Normal thought content present Insight: Good insight present (Psych) Judgement: Good judgement present (Psych) Assessment and Plan Assessment & Plan (1) Leukocytosis: Code(s): D72.829 - Elevated white blood cell count, unspecified Plan: Repeat CBC ordered Plan The patient agreed to the use of a electromedical equipment technician for this encounter. Scribed for CRISPIN Ocasio by Shyla Gunn electromedical equipment technician, on 08/28/2023 at 14:10 EST. Orders: Orders Complete Blood Count Auto Diff Today D72.829 - Elevated white blood cell count, unspecified Coding Level of Care Code Est Pt Prev Care 18-39y(40660) Diagnoses Leukocytosis D72.829
== END 2023-08-28 14:38 | disposition home or self-care (01) ==
PROVIDERS: PCP Nurse Practitioner Family; Visit Provider Nurse Practitioner Family
DX: Z00.00 Encounter for general adult medical examination without abnormal findings (principal); D72.829 Elevated white blood cell count, unspecified
CPT/HCPCS: 99395

== ENCOUNTER 2024-09-17 12:50 | Outpatient (AMB) | payer OTHER, SELFPAY ==
--- NOTE | 2024-09-17 12:53 | A.OFFPC_ITS ---
Vital Signs 09/17/24 12:54 Height 5 ft 11.5 in Weight 272 lb BMI 37.4 BP 124/82 Blood Pressure Location Lt brachial Position Sitting Respiration 16 Pulse 92 Pulse Oximetry (%) 94 Oxygen Delivery Method Room Air Intake Visit Reasons: PE Telesales Representative Required: No Accompanied by: Self / Same As Patient Allergies penicillin G Allergy (Unknown, Verified 09/17/24 13:22) unknown Penicillins (PENICILLINS) Allergy (Unknown, Verified 09/17/24 13:22) UNKNOWN Medication List - Last Reconciled 09/17/24 by Gabriele Aquino [facility] blood sugar diagnostic As directed blood-glucose meter As directed empagliflozin (Jardiance) 10 mg PO DAILY 90 days ezetimibe 10 mg PO DAILY lancets As directed lancets (OneTouch Delica Plus Lancet) TID testing lisinopril 20 mg PO DAILY metformin ER 500 mg PO BID 90 days OneTouch Ultra Test (blood sugar diagnostic) TID testing NS OneTouch Ultra2 Meter (blood-glucose meter) TID testing NS semaglutide (Ozempic) 0.25 mg (0.368 mL) subcut QWEEK sertraline 100 mg PO DAILY Tobacco use date assessed: 09/17/24 Dental Screening Dental Screen Date: 09/17/24 Did you have a dental visit in the last 12 months?: Yes Did you have a dental problem in the last 6 months where you did not have access to dental care?: No Was dental information given to patient?: Patient has dentist HPI PE HPI Details History of Present Illness The patient is a 39-year-old male presenting for diabetes management and lifestyle modification. He has a history of diabetes mellitus with a current hemoglobin A1c of 8.4%, indicating poor glycemic control. The patient reports dietary indiscretions, which he acknowledges as poor dietary choices. He has been off his GLP-1 agonist medication for over six months, which may have contributed to the suboptimal diabetes control. The patient recently purchased a new house and has a new daughter, which may have impacted his ability to maintain a healthy lifestyle. The patient is also noted to be obese, which is a contributing factor to his diabetes management challenges. He reports that his eye examination is up-to-date, which is an important aspect of diabetes management. Health Maintenance - Eye examination is current, which is c rucial for diabetes management Social History - Housing: Recently purchased a new hous e - Family: Has a new daughter - Nutrition: Reports frequent consumptio n of takeout food Review of Systems Physical Exam General: Cooperative, healthy appearing, comfortable, no acute distress and well developed, obese Orientation: Patient oriented x3 Limitations: No limitations Head: Normal to inspection Ears: Hearing grossly normal bilaterally Nose: Normal external nose present Face and sinus: Normal facial exam Eyes: Appearance normal, both eyes and all related structures Neck: Normal visual inspection and Yes full ROM Respiratory: Normal respiratory effort and able to speak in complete sentences. Clear to auscultation bilaterally Cardiovascular: Regular rate and rhythm. Normal S1 and S2 GI: Normal to inspection. Soft to palpation and nontender : testicles without masses/lesions and no hernias appreciated Skin: No rashes or lesions noted Neuro: Patient oriented x3 Extremities: Normal to inspection, feet were intact bilaterally, positive sensation with use of monofilament Results - Labs: Hemoglobin A1c is 8.4% Plan The plan includes restarting the GLP-1 agonist to improve glycemic control and addressing the patient's dietary habits by emphasizing the importance of a balanced diet in managing diabetes. The patient is advised to reduce takeout food consumption and incorporate healthier food choices. Additionally, the patient is reminded of the potential complications associated with uncontrolled diabetes and the importance of regular follow-up visits to monitor his condition. Discussion Notes I discussed with the patient the importance of restarting his GLP-1 agonist medication to help manage his diabetes more effectively. We talked about the need to improve his dietary habits, particularly reducing the intake of takeout food and focusing on healthier options. I emphasized the risks associated with uncontrolled diabetes, including potential complications, and the necessity of regular follow-up visits. Patient Instructions - Restart your GLP-1 agonist medication as prescribed. - Focus on eating a balanced diet and re duce takeout food. - Schedule regular follow-up appointment s to monitor your diabetes. [facility] Medical History History of splenomegaly Surgical History No pertinent past surgical history Family History Father HTN (hypertension) Mother No problems noted. Maternal Grandmother Stroke Paternal Grandfather CVD (cardiovascular disease) Brother No problems noted. Brother No problems noted. Sister No problems noted. Sister No problems noted. Sister No problems noted. Social History Housing: House Patient Tobacco Use Status: Never used Tobacco e-Cigarette/Vaping Use: Never Used service: No Current occupational status: employed Cognitive needs: No Hearing needs: No Vision needs: Yes Questionnaire PHQ-9 Over the last 2 weeks, how often have you been bothered by any of the following problems? 1. Little interest or pleasure in doing things: not at all 2. Feeling down, depressed, or hopeless: not at all 3. Trouble falling or staying asleep, or sleeping too much: not at all 4. Feeling tired or having little energy: not at all 5. Poor appetite or overeating: not at all 6. Feeling bad about yourself - or that you are a failure or have let yourself or your family down: not at all 7. Trouble concentrating on things, such as reading the newspaper or watching television: not at all 8. Moving or speaking so slowly that other people could have noticed. Or the o pposite - being so fidgety or restless that you have been moving around a lot more than usual: not at all 9. Thoughts that you would be better off or of hurting yourself in some way: not at all Total score: 0 Source: Developed by Drs. Bharat Ragsdale, Dayanara Garcia, Jeff Garcia and colleagues, with an educational selena from [employer]. Thrive Questionnaire Date Thrive assessed: 09/14/24 I am a: Patient What is your living situation today?: I have a steady place to live Within the past 12 months, did the food you bought not last and you didn't have the money to get more?: Never true Within the past 12 months, did you worry whether your food would run out before you got money to buy more?: Never true Do you have trouble paying for medicines?: No Do you have trouble getting transportation to medical appointments?: No Do you have trouble paying your heating and electricity bill?: No Do you have trouble taking care of your child, family member or friend?: No Do you have trouble with day-to-day activities such as bathing, preparing meals, shopping, managing finances, etc.?: No Are you currently unemployed and looking for a job?: No Are you interested in more education?: No Please select the resources that you would like help with: None Currently or been in a relationship where the following occur: No concerns reported THRIVE Score: 0 AUDIT C Alcohol Use Questionnaire (AUDIT-C) 1. How often do you have a drink containing alcohol?: Never Total Score: 0 ABNER-7 AMB Questionnaire ABNER-7 Date ABNER - 7 assessed: 05/17/23 Feeling nervous, anxious, or on edge: 0 = Not at all Not being able to stop or control worryin = Not at all Worrying too much about different things: 0 = Not at all Trouble relaxin = Not at all Being so restless that it is hard to sit still: 0 = Not at all Becoming easily annoyed or irritable: 0 = Not at all Feeling afraid as if something awful might happen: 0 = Not at all Total ABNER-7 score (0-4 normal; 5-9 mild; 10-14 moderate; 15-21 severe): 0 Source: Developed by Drs. Bharat Ragsdale, Dayanara Garcia, Jeff Garcia and colleagues, with an educational selena from [employer]. Physical exam (Primary Care) Vital Signs: Last Vital Signs Pulse 92 09/17/24 12:54 Resp 16 09/17/24 12:54 BP 124/82 09/17/24 12:54 Pulse Ox 94 09/17/24 12:54 Oxygen Delivery Method Room Air 09/17/24 12:54 BMI result Body Mass Index 37.4 Tobacco/Smoking Status: Tobacco use Status Tobacco use date assessed 09/17/24 09/17/24 12:58 Patient Tobacco Use Status Never used Tobacco 09/17/24 12:58 e-Cigarette/Vaping Use Never Used 09/17/24 12:58 PHQ-9: PHQ-9 Score PHQ-9: Total score 0 09/17/24 13:13 Thrive Assessment: Date of Thrive Assessment Date Thrive assessed 09/14/24 09/17/24 12:58 Currently or been in a relationship where the following occur: No concerns reported Coding Level of Care Code Est Pt Level 3 (96064) Est Pt Prev Care 18-39y(74626) Diagnoses Diabetes E11.9 Encounter for routine adult physical exam with abnormal findings Z00.01 Assessment & Plan Assessment & Plan (1) Diabetes: Code(s): E11.9 - Type 2 diabetes mellitus without complications Category: Medical (2) Encounter for routine adult physical exam with abnormal findings: Code(s): Z00.01 - Encounter for general adult medical examination with abnormal findings Category: Medical Plan . Orders: Orders Comprehensive Mar Lin. Panel Fast Today E11.9 - Type 2 diabetes mellitus without complications TSH reflex Free T4 Today E11.9 - Type 2 diabetes mellitus without complications UA CC w/rflx Micro + Cult Today E11.9 - Type 2 diabetes mellitus without complications Microalbumin, Random (w Creat) Today E11.9 - Type 2 diabetes mellitus without complications AMB Hemoglobin A1c Today Z13.9 - Encounter for screening, unspecified Complete Blood Count Auto Diff Today E11.9 - Type 2 diabetes mellitus without complications Lipid Panel Today E11.9 - Type 2 diabetes mellitus without complications Medications: Refilled semaglutide (Ozempic) 0.25 mg (0.368 mL) subcut QWEEK 6 mL 1RF E11.9 - Type 2 diabetes mellitus without complications
[2024-09-17 12:54] VITALS: BP 124/82; PULSE 92; RESP 16; O2SAT 94; BMI 37.4
== END 2024-09-17 13:37 | disposition home or self-care (01) ==
LOC: HO.HMCC 12:51
PROVIDERS: PCP Nurse Practitioner Family; Visit Provider Nurse Practitioner Family
DX: Z00.01 Encounter for general adult medical examination with abnormal findings (principal); E11.9 Type 2 diabetes mellitus without complications

== ENCOUNTER → 2024-09-17 12:50 | Outpatient (BNVA) | payer OTHER, SELFPAY | PROVIDERS: PCP Nurse Practitioner Family; Visit Provider Nurse Practitioner Family | DX: Z00.01 Encounter for general adult medical examination with abnormal findings (principal); E11.9 Type 2 diabetes mellitus without complications; Z13.30 Encounter for screening examination for mental health and behavioral disorders, unspecified | CPT/HCPCS: 83036; 96127 ==

== ENCOUNTER 2025-01-15 09:04 | Outpatient (REF) | payer OTHER, SELFPAY ==
[2025-01-15 11:05] LABS: MANUAL DIFF FLAG NO
[2025-01-15 11:10] LABS: Hematocrit 48.5 % (42.0-52.0); Hemoglobin 16.4 g/dl (14.0-18.0); Imm Gran Abs Auto 0.03 X10*3/uL (0.00-0.03); Imm Gran Pct Auto 0.3 % (0.0-0.4); Lymphocytes Absolute Auto 3.4 X10*3/uL (1.2-4.9); Mean Corpuscular HGB Conc 33.8 g/dl (31.0-36.0); Mean Corpuscular Hemoglobin 29.9 pg (27.0-33.0); Mean Corpuscular Volume 88.5 fL (80.0-98.0); NRBC Abs Auto 0.000 X10*3/uL (0.0-0.012); NRBC Pct Auto 0.0 /100WBC (0.0-0.2); Platelet Count 256 X10*3/uL (160-400); Red Blood Count 5.48 X10*6/uL (4.60-5.80); White Blood Count 9.9 X10*3/uL (4.8-10.8)
[2025-01-15 12:42] LABS: Alanine Aminotransferase 65 U/L (0-40); Albumin Level 4.6 g/dL (3.5-5.0); Alkaline Phosphatase 71 U/L (39-117); Anion Gap 14 (12-20); Aspartate Amino Transferase 37 U/L (5-37); Blood Urea Nitrogen 10 mg/dL (9-16); Calcium 9.3 mg/dL (8.4-10.2); Carbon Dioxide 25 mmol/L (22-29); Chloride 104 mmol/L (96-108); Cholesterol 156 mg/dL (<200); Estimated Glomerular Filt Rate > 60; HDL Cholesterol 30 mg/dL (>40); Potassium 4.5 mmol/L (3.3-5.1); Sodium 138 mmol/L (135-145); Total Protein 7.6 g/dL (6.5-8.0); Triglycerides 156 mg/dL (<150)
[2025-01-15 14:01] LABS: Appearance Urine Clear; Glucose Urine UA >=1000 mg/dL (Negative); PH 5.5 (5.0-9.0); Specific Gravity - Urine >= 1.030 (1.005-1.025); UMIC TRIGGER UACC YES
[2025-01-15 14:26] LABS: Microalbum/Creatinine Ratio Ur 7.8 ug/mg cr (<30)
== END 2025-01-15 09:05 | disposition home or self-care (01) ==
LOC: HO.HMGCLDS 09:04
PROVIDERS: PCP Nurse Practitioner Family; Visit Provider Nurse Practitioner Family
DX: E11.9 Type 2 diabetes mellitus without complications (principal)
CPT/HCPCS: 36415; 80053; 80061; 81001; 81003; 82043; 82570; 84443; 85025

== ENCOUNTER 2025-01-21 08:02 | Outpatient (AMB) | payer OTHER, SELFPAY ==
--- NOTE | 2025-01-21 08:10 | A.OFFPC_ITS ---
Vital Signs 01/21/25 08:11 Height 5 ft 11.5 in Weight 263 lb BMI 36.2 BP 122/70 Blood Pressure Location Lt brachial Position Sitting Respiration 16 Pulse 94 Pulse Source Pulse Oximeter Pulse Oximetry (%) 96 Oxygen Delivery Method Room Air Intake Visit Reasons: 4m follow up Paper Cone Grader Required: No Accompanied by: Self / Same As Patient Allergies penicillin G Allergy (Unknown, Verified 01/21/25 08:17) unknown Penicillins (PENICILLINS) Allergy (Unknown, Verified 01/21/25 08:17) UNKNOWN Medication List - Last [facility] sugar diagnostic As directed blood-glucose meter As directed empagliflozin (Jardiance) 10 mg PO DAILY 90 days ezetimibe 10 mg PO DAILY lancets As directed lancets (OneTouch Delica Plus Lancet) TID testing lisinopril 20 mg PO DAILY metformin ER 500 mg PO DAILY OneTouch Ultra Test (blood sugar diagnostic) TID testing NS OneTouch Ultra2 Meter (blood-glucose meter) TID testing NS sertraline 100 mg PO DAILY Tobacco use date assessed: 01/21/25 Dental Screening Dental Screen Date: 01/21/25 Did you have a dental visit in the last 12 months?: Yes Did you have a dental problem in the last 6 months where you did not have access to dental care?: No HPI 4m follow up HPI Details Chief Complaint The patient presents for a follow-up visit for diabetes. History of Present Illness The patient is a 39 year old individual presenting for a follow-up for diabetes. The patient's hemoglobin A1c is 7.3%, which is an improvement from a prior level of over 8%. The patient is currently taking metformin once a day, although it was prescribed for twice-daily use. The patient was previously on Ozempic but discontinued it due to nausea. The patient is also on an GELY inhibitor and ezetimibe. The patient has a history of a fatty liver, and recent lab work showed a slightly elevated liver enzyme. The patient's microalbumin level is up to date. Social History - Diet: Dietary modifications have been reinforced. Health Maintenance - The patient will schedule a diabetic e ye exam in the near future. - The importance of diet was reinforced. Review of Systems - General: Denies any side effects from current medications. - Neurological: Denies neuropathy. Physical Exam General: Cooperative, healthy appearing, comfortable, no acute distress and well developed Orientation: Patient oriented x3 Limitations: No limitations Head: Normal to inspection Ears: Hearing grossly normal bilaterally Nose: Normal external nose present Face and sinus: Normal facial exam Eyes: Appearance normal, both eyes and all related structures Neck: Normal visual inspection and Yes full ROM Respiratory: Normal respiratory effort and able to speak in complete sentences. Clear to auscultation bilaterally Cardiovascular: Regular rate and rhythm. Normal S1 and S2 GI: Normal to inspection. Soft to palpation and nontender Skin: No rashes or lesions noted Neuro: Patient oriented x3 Extremities: Normal to inspection, feet were intact bilat, + sensation with use of monofilament Results - Labs: - Hemoglobin A1c: 7.3%, improved from a previous value of over 8%. - Liver Enzymes: Slightly elevated. - Urine Microalbumin: Up to date. Plan 1. Type 2 Diabetes Mellitus The patient's A1c has improved to 7.3% from a previous level over 8%. The patient is taking metformin once daily. To further improve glycemic control, the dose of Jardiance will be increased from 10 mg to 25 mg daily. The patient will schedule a diabetic eye exam. A follow-up visit is scheduled for 6 months. 2. Non-Alcoholic Fatty Liver Disease The patient has a history of fatty liver and labs show a slightly elevated liver enzyme. Dietary modifications were reinforced. 3. Hyperlipidemia The patient will continue treatment with ezetimibe. Discussion Notes I discussed the patient's A1c improvement to 7.3% and the plan to further improve glucose control. We reviewed the history of Ozempic use, which was stopped due to nausea. I recommended increasing the Jardiance dose from 10 mg to 25 mg, and the patient denied any current side effects from it. I also reinforced dietary changes for the patient's fatty liver, noting the slightly elevated liver enzyme, and advised scheduling an eye exam. We will have a follow-up in 6 months. Patient Instructions - Increase your Jardiance medication fro m 10 mg to 25 mg once a day. - Continue taking your metformin, GELY in hibitor, and ezetimibe as prescribed. - Schedule an eye exam in the near futur e. - Continue to follow the recommended t. - Schedule a follow-up appointment in 6 months. [facility] Medical History History of splenomegaly Surgical History No pertinent past surgical history Family History Father HTN (hypertension) Mother No problems noted. Maternal Grandmother Stroke Paternal Grandfather CVD (cardiovascular disease) Brother No problems noted. Brother No problems noted. Sister No problems noted. Sister No problems noted. Sister No problems noted. Social History Housing: House Patient Tobacco Use Status: Never used Tobacco e-Cigarette/Vaping Use: Never Used service: No Current occupational status: employed Cognitive needs: No Hearing needs: No Vision needs: Yes Questionnaire Thrive Questionnaire Date Thrive assessed: 09/14/24 I am a: Patient What is your living situation today?: I have a steady place to live Within the past 12 months, did the food you bought not last and you didn't have the money to get more?: Never true Within the past 12 months, did you worry whether your food would run out before you got money to buy more?: Never true Do you have trouble paying for medicines?: No Do you have trouble getting transportation to medical appointments?: No Do you have trouble paying your heating and electricity bill?: No Do you have trouble taking care of your child, family member or friend?: No Do you have trouble with day-to-day activities such as bathing, preparing meals, shopping, managing finances, etc.?: No Are you currently unemployed and looking for a job?: No Are you interested in more education?: No Please select the resources that you would like help with: None Currently or been in a relationship where the following occur: No concerns repor jagjit THRIVE Score: 0 AUDIT C Alcohol Use Questionnaire (AUDIT-C) 2. How many drinks containing alcohol do you have on a typical day when you are drinking?: 1 or 2 Total Score: 0 ABNER-7 AMB Questionnaire ABNER-7 Date ABNER - 7 assessed: 01/21/25 Feeling nervous, anxious, or on edge: 0 = Not at all Not being able to stop or control worryin = Not at all Worrying too much about different things: 0 = Not at all Trouble relaxin = Not at all Being so restless that it is hard to sit still: 0 = Not at all Becoming easily annoyed or irritable: 0 = Not at all Feeling afraid as if something awful might happen: 0 = Not at all Total ABNER-7 score (0-4 normal; 5-9 mild; 10-14 moderate; 15-21 severe): 0 Source: Developed by Drs. Bharat Ragsdale, Dayanara Garcia, Jeff Garcia and colleagues, with an educational selena from [employer]. ABNER-7 Assessment Billing ABNER-7 Assessment Tool: ABNER-7 Assessment 41186 Physical exam (Primary Care) Vital Signs: Last Vital Signs Pulse 94 01/21/25 08:11 Resp 16 01/21/25 08:11 BP 122/70 01/21/25 08:11 Pulse Ox 96 01/21/25 08:11 BMI result Body Mass Index 36.2 Tobacco/Smoking Status: Tobacco use Status Tobacco use date assessed 01/21/25 01/21/25 08:12 Patient Tobacco Use Status Never used Tobacco 01/21/25 08:12 e-Cigarette/Vaping Use Never Used 01/21/25 08:12 Thrive Assessment: Date of Thrive Assessment Date Thrive assessed 09/14/24 01/21/25 08:12 Currently or been in a relationship where the following occur: No concerns reported Results AMB Hemoglobin A1c AMB Hemoglobin A1c 7.7 % Last Edit by Destiny Tapia MA on 01/21/25 08:25 Coding Level of Care Code Est Pt Level 3 (28964) Diagnoses Diabetes E11.9 Dyslipidemia E78.5 Fatty liver K76.0 Additional Codes ABNER-7 Assessment Billing - ABNER-7 Assessment Tool: ABNER-7 Assessment 03013 ([id number]) Assessment & Plan Assessment & Plan (1) Diabetes: Code(s): E11.9 - Type 2 diabetes mellitus without complications Category: Medical (2) Dyslipidemia: Code(s): E78.5 - Hyperlipidemia, unspecified Category: Medical (3) Fatty liver: Code(s): K76.0 - Fatty (change of) liver, not elsewhere classified Category: Medical Plan . Orders: Orders AMB Hemoglobin A1c Today E11.9 - Type 2 diabetes mellitus without complications Medications: Changed From empagliflozin (Jardiance) 10 mg PO DAILY 90 days 90 tabs 1RF To empagliflozin 25 mg PO DAILY 90 tabs 1RF 90 days
[2025-01-21 08:11] VITALS: BP 122/70; PULSE 94; RESP 16; O2SAT 96; BMI 36.2
== END 2025-01-21 08:31 | disposition home or self-care (01) ==
LOC: HO.HMCC 08:03
PROVIDERS: PCP Nurse Practitioner Family; Visit Provider Nurse Practitioner Family
DX: E11.9 Type 2 diabetes mellitus without complications (principal); E78.5 Hyperlipidemia, unspecified; K76.0 Fatty (change of) liver, not elsewhere classified

== ENCOUNTER → 2025-01-21 08:02 | Outpatient (BNVA) | payer OTHER, SELFPAY | PROVIDERS: PCP Nurse Practitioner Family; Visit Provider Nurse Practitioner Family | DX: E11.9 Type 2 diabetes mellitus without complications (principal); K76.0 Fatty (change of) liver, not elsewhere classified; E78.5 Hyperlipidemia, unspecified | CPT/HCPCS: 83036; 96127 ==